=== PATIENT | female | born 1975 | race Caucasian/White ===

== ENCOUNTER → 2017-02-19 02:01 | Emergency (ER) | payer MEDICAID ==
[2017-02-19 02:27] LABS: APPEARANCE CLEAR (CLEAR); BILIRUBIN NEGATIVE (NEGATIVE); COLOR YELLOW (YELLOW); GLUCOSE 500 mg/dL (NEGATIVE); KETONE NEGATIVE (NEGATIVE); NITRITE NEGATIVE (NEGATIVE); PROTEIN NEGATIVE (NEGATIVE); SPECIFIC GRAVITY 1.015 (1.005-1.020); UROBILINOGEN NORMAL (NORMAL)
[2017-02-19 03:09] LABS: BASOPHILS 0.2 % (0-2); EOSINOPHILS 3.5 % (0-7); HEMATOCRIT 46.7 % (36.0-48.0); HEMOGLOBIN 15.5 g/dL (12-16); IMMATURE GRANULOCYTES 1.3 % (0-5); LYMPHOCYTES 28.6 % (15-50); MCH 29.9 pg (26.0-34.0); MCHC 33.2 g/dL (31.0-37.0); MONOCYTES 6.6 % (2-11); NEUTROPHILS 59.8 % (40-80); PLATELET COUNT 250 10x3/uL (130-400); RBC 5.19 10x6/uL (4.00-5.40); RDW 14.1 % (11.5-14.5); WBC 9.7 10x3/uL (4.8-10.8)
[2017-02-19 03:29] LABS: ALBUMIN 3.6 g/dL (3.4-5.0); ALKALINE PHOSPHATASE 90 U/L (46-116); ALT (SGPT) 20 U/L (10-68); CALC OSMOLALITY 286 mosm/kg (275-300); CALCIUM 9.2 mg/dL (8.5-10.1); CARBON DIOXIDE 25.2 mmol/L (21.0-32.0); CHLORIDE - SERUM 104 mmol/L (98-107); CREATININE - SERUM 0.7 mg/dL (0.6-1.3); GLUCOSE 225 mg/dL (74-106); LIPASE 156 U/L (73-393); PROTEIN - SERUM 6.6 g/dL (6.4-8.2); SODIUM 140 mmol/L (136-145); UREA NITROGEN 15 mg/dL (7-18); eGFR NON AFRICAN AMERICAN > 90 mL/min (90-120)
[2017-02-19 07:49] LABS: UDS - AMPHET NEGATIVE QUAL (NEGATIVE); UDS - BARB NEGATIVE QUAL (NEGATIVE); UDS - BENZO POSITIVE QUAL (NEGATIVE); UDS - COCAINE NEGATIVE QUAL (NEGATIVE); UDS - OPIATE POSITIVE QUAL (NEGATIVE); UDS - PCP NEGATIVE QUAL (NEGATIVE); UDS - THC NEGATIVE QUAL (NEGATIVE)
== END | disposition home or self-care (01) ==
LOC: D.ER 02:01
PROVIDERS: Family Medicine
DX: K08.89 Other specified disorders of teeth and supporting structures (principal); M54.9 Dorsalgia, unspecified

== ENCOUNTER 2017-06-01 07:12 | Emergency (ER) | payer MEDICAID ==
[2017-06-01 08:57] LABS: APPEARANCE HAZY (CLEAR); BILIRUBIN NEGATIVE (NEGATIVE); COLOR YELLOW (YELLOW); GLUCOSE 1000 mg/dL (NEGATIVE); KETONE NEGATIVE (NEGATIVE); NITRITE POSITIVE (NEGATIVE); PROTEIN NEGATIVE (NEGATIVE); SPECIFIC GRAVITY 1.005 (1.005-1.020); UROBILINOGEN NORMAL (NORMAL)
[2017-06-01 08:58] LABS: BACTERIA MANY /hpf (NONE SEEN); EPITHELIAL CELLS 0-5 /hpf (0-5); MUCUS <1+ /lpf (NONE SEEN); RED CELLS - URINE RARE /hpf (0-5); YEAST <1+ /hpf (NONE SEEN)
== END 2017-06-01 10:49 | disposition home or self-care (01) ==
LOC: D.ER 07:12
PROVIDERS: Family Medicine
DX: M43.6 Torticollis (principal); M62.838 Other muscle spasm; N39.0 Urinary tract infection, site not specified

== ENCOUNTER 2017-06-04 05:41 | Emergency (ER) | payer MEDICAID ==
[2017-06-04 06:47] LABS: BASOPHILS 0.3 % (0-2); EOSINOPHILS 3.1 % (0-7); HEMATOCRIT 50.5 % (36.0-48.0); IMMATURE GRANULOCYTES 1.1 % (0-5); LYMPHOCYTES 25.1 % (15-50); MCHC 33.7 g/dL (31.0-37.0); MCV 89.1 fL (80.0-100.0); MEAN PLATELET VOLUME 10.1 fL (7.4-10.4); MONOCYTES 7.5 % (2-11); NEUTROPHILS 62.9 % (40-80); PLATELET COUNT 241 10x3/uL (130-400); RBC 5.67 10x6/uL (4.00-5.40); RDW 14.7 % (11.5-14.5); WBC 9.8 10x3/uL (4.8-10.8)
[2017-06-04 07:09] LABS: ALBUMIN 3.7 g/dL (3.4-5.0); ALKALINE PHOSPHATASE 90 U/L (46-116); ALT (SGPT) 23 U/L (10-68); BILIRUBIN - TOTAL 0.27 mg/dL (0.2-1.3); CALC OSMOLALITY 289 mosm/kg (275-300); CALCIUM 9.5 mg/dL (8.5-10.1); CARBON DIOXIDE 23.3 mmol/L (21.0-32.0); CHLORIDE - SERUM 106 mmol/L (98-107); CREATININE - SERUM 0.6 mg/dL (0.6-1.3); GLUCOSE 228 mg/dL (74-106); PROTEIN - SERUM 7.3 g/dL (6.4-8.2); SODIUM 141 mmol/L (136-145); UREA NITROGEN 18 mg/dL (7-18); eGFR NON AFRICAN AMERICAN > 90 mL/min (90-120)
== END 2017-06-04 07:16 | disposition home or self-care (01) ==
LOC: D.ER 05:41
PROVIDERS: Family Medicine
DX: R51 Headache (principal)

== ENCOUNTER 2017-06-29 21:16 | Emergency (ER) | payer MEDICAID ==
[2017-06-29 21:50] LABS: APPEARANCE HAZY (CLEAR); BILIRUBIN NEGATIVE (NEGATIVE); COLOR YELLOW (YELLOW); GLUCOSE 1000 mg/dL (NEGATIVE); KETONE NEGATIVE (NEGATIVE); NITRITE POSITIVE (NEGATIVE); PROTEIN NEGATIVE (NEGATIVE); SPECIFIC GRAVITY 1.015 (1.005-1.020); UROBILINOGEN NORMAL (NORMAL)
[2017-06-29 21:51] LABS: BACTERIA MANY /hpf (NONE SEEN); EPITHELIAL CELLS 0-5 /hpf (0-5); RED CELLS - URINE 0-5 /hpf (0-5); WHITE CELLS - URINE 0-5 /hpf (0-5)
== END 2017-06-29 22:13 | disposition home or self-care (01) ==
LOC: D.ER 21:16
PROVIDERS: Family Medicine
DX: N39.0 Urinary tract infection, site not specified (principal)

== ENCOUNTER 2018-04-15 08:12 | Emergency (ER) | payer MEDICAID ==
[~2018-04-15] VITALS: Ht 165.1 cm; Wt 100.0 kg
[2018-04-15 08:22] VITALS: Ht 165.1 cm; Wt 100.0 kg
[2018-04-15] MEDS ORDERED: HYDROCODON-ACE1 EA10 PO (08:23)
[2018-04-15] MEDS ORDERED: XANAX2 MG PO (08:24)
[2018-04-15] MEDS ORDERED: NAPROSYN500 MG PO (09:57)
[2018-04-15 10:28] VITALS: BP 148/84
== END 2018-04-15 10:29 | disposition home or self-care (01) ==
LOC: D.ER 08:12
DX: S83.92XA Sprain of unspecified site of left knee, initial encounter (principal); V43.52XA Car driver injured in collision with other type car in traffic accident, initial encounter; Y93.89 Activity, other specified; Y92.410 Unspecified street and highway as the place of occurrence of the external cause; S60.222A Contusion of left hand, initial encounter

== ENCOUNTER → 2018-07-04 11:12 | Outpatient (CLI) | payer MEDICAID ==
[2018-04-15 08:22] VITALS: BMI 36.6
[~2018-07-04 11:12] MED LIST: HYDROCODON-ACE1 EA10 PO; NAPROSYN500 MG PO; XANAX2 MG PO
== END | disposition home or self-care (01) ==
LOC: D.MRI 11:00
PROVIDERS: ATTEND Clinical Nurse Specialist Family Health
DX: M25.362 Other instability, left knee (principal)

== ENCOUNTER 2019-04-21 14:49 | Emergency (ER) | payer OTHER, MEDICAID ==
[~2019-04-21] VITALS: Ht 165.1 cm; Wt 100.0 kg
[2019-04-21 14:53] VITALS: Ht 165.1 cm; Wt 100.0 kg
[2019-04-21] MEDS ORDERED: VOLTAREN75 MG PO (15:44)
[2019-04-21 15:57] VITALS: BP 121/82
== END 2019-04-21 15:58 | disposition home or self-care (01) ==
LOC: D.ER 14:49
DX: M25.521 Pain in right elbow (principal); S53.441A Ulnar collateral ligament sprain of right elbow, initial encounter; M62.838 Other muscle spasm; V89.2XXA Person injured in unspecified motor-vehicle accident, traffic, initial encounter